=== PATIENT | female | born 1945 | race Hispanic/Latino ===

== ENCOUNTER 2017-12-30 01:37 | Inpatient (IN) | payer BC, MEDICARE ==
[2017-12-30] MEDS ORDERED: Sodium Chloride 0.9% 1,000 ML IV STA (02:31)
[2017-12-30 03:08] LABS: VENOUS BLOOD GAS BASE EXCESS -0.8 mmol/L (0.0-2.0); VENOUS BLOOD GAS PCO2 44 mmHg (40-60); VENOUS BLOOD GAS PO2 21 mm/Hg (30-55); VENOUS BLOOD PH 7.36 (7.32-7.43)
--- NOTE | 2017-12-30 03:11 | ED PDOC ---
HPI:Nausea, Vomiting, Diarrhea Time Seen by Provider: 12/30/17 02:01 Chief Complaint (Nursing): High Blood Sugar Chief Complaint (Provider): nausea, vomiting, diarrhea, high blood sugar History Per: Patient History/Exam Limitations: no limitations Onset/Duration Of Symptoms: Days (1 day ago) Current Symptoms Are (Timing): Still Present Additional Complaint(s): 72 yo female with a history of Pulmonary embolism, currently on Eliquis, hypertension, presents to the ED complaining of nausea, vomiting, and diarrhea, onset of 1 day ago. Patient reports of 1 episode of bloody vomit and 1 episode of dark, brown stool intermixed with blood in the morning, and had another episode of each in the evening. He is also states that he feels lightheaded, dizzy, and clammy. He denies any abdominal pain, but feels hungry. Of note, she claimed that her blood sugar was elevated above 400. PCP: Piotr Lopez V Past Medical History Reviewed: Historical Data, Nursing Documentation, Vital Signs Vital Signs: Last Vital Signs Temp 97.3 F L 12/30/17 01:58 Pulse 97 H 12/30/17 01:58 Resp 18 12/30/17 01:58 BP 96/63 L 12/30/17 01:58 Pulse Ox 96 12/30/17 01:58 - Medical History PMH: HTN, Pulmonary Embolism - Family History Family History: States: Unknown Family Hx - Home Medications Home Medications: Ambulatory Orders Medication Instructions Recorded Apixaban [Eliquis] 5 mg PO BID 12/30/17 Aspirin [Ecotrin] 81 mg PO DAILY 12/30/17 Cholecalciferol [Vitamin D 1000 IU] 1 tab PO DAILY 12/30/17 Febuxostat [Uloric] 80 mg PO DAILY 12/30/17 Furosemide [Lasix] 40 mg PO DAILY 12/30/17 Insulin Detemir [Levemir] 27 units SC BID 12/30/17 Metoprolol Succinate XL [Toprol XL] 100 mg PO BID 12/30/17 diltiaZEM [Cardizem] 240 mg PO DAILY 12/30/17 - Allergies Allergies/Adverse Reactions: Allergies Allergy/AdvReac Type Severity Reaction Status Date / Time No Known Allergies Allergy Verified 12/30/17 01:58 Review of Systems ROS Statement: Except As Marked, All Systems Reviewed And Found Negative Constitutional: Positive for: Other (clammy). Negative for: Fever Cardiovascular: Positive for: Light Headedness Gastrointestinal: Positive for: Nausea, Vomiting, Diarrhea, Hematochezia, Hematemesis Neurological: Positive for: Dizziness Physical Exam - Reviewed Nursing Documentation Reviewed: Yes Vital Signs Reviewed: Yes - Physical Exam Appears: Negative for: Well (pale appearing) Head Exam: Positive for: ATRAUMATIC, NORMAL INSPECTION, NORMOCEPHALIC Skin: Positive for: Pallor Eye Exam: Positive for: EOMI, PERRL, Other (conjunctival pallor) ENT: Positive for: Normal ENT Inspection Neck: Positive for: Normal, Painless ROM Cardiovascular/Chest: Positive for: Regular Rate, Rhythm. Negative for: Murmur Respiratory: Positive for: Normal Breath Sounds. Negative for: Respiratory Distress Gastrointestinal/Abdominal: Positive for: Normal Exam, Soft Rectal: Positive for: Blood Streaked Stool Extremity: Positive for: Normal ROM, Pedal Edema. Negative for: Deformity Neurologic/Psych: Positive for: Alert, Oriented. Negative for: Motor/Sensory Deficits - Laboratory Results Result Diagrams: 12/30/17 05:20 12/30/17 03:11 - ECG O2 Sat by Pulse Oximetry: 96 (RA) Pulse Ox Interpretation: Normal - Critical Care Total Time (In Min): 60 Documented Critical Care: Time excludes all time spent performint seperately billable procedures Medical Decision Making Medical Decision Making: Time: --02:30 Impression: --patient on Eliquis with GI bleed Plan: --Blood type and screen --ECG --Labs --Lipase --Troponin I --Chest One view X-ray --IV fluids --Zofran 4mg IVP --Patoprazole 80mg IVP --Blood Culture --IV Insertion --Urinalysis --Occult Blood, stool Patient will require continuous monitoring and will be given protonics and IV fluids. Patient will also be evaluated for diabetic ketoacidosis. 4AM Patient continues to have bloody bowel movements, will place on PPI drip. 2 units PRBC ordered, patient consented. Will page GI after 2nd CBC trend. Patient stable. 2nd IV placed by nurse, 18G. 5AM BP 120/60. Fluid given at 150ccs/hr as to note hemodilute second CBC. 6AM Will admit patient to ICU given drop in Hgb, age, and continued bleeding. Dr. Hirsch agrees to admission. Dr. Vega aware, agrees with current management and will see patient this AM. Dr. Chavez at bedside evaluating patient for ICU. BP improving, patient appearing in good spirits, no acute distress. Scribe Attestation: Documented by Sherif Vickers acting as a scribe for Arthur Riggs MD. Provider Attestation: All medical record entries made by the Scribe were at my direction and personally dictated by me. I have reviewed the chart and agree that the record accurately reflects my personal performance of the history, physical exam, medical decision making, and the department course for this patient. I have also personally directed, reviewed, and agree with the discharge instructions and disposition. Disposition - Clinical Impression Clinical Impression: GI bleed, Hyperglycemia - Disposition Disposition Time: 04:00 Condition: SERIOUS
[2017-12-30 03:14] LABS: BASO # 0.1 K/uL (0.0-0.2); BASO % 0.5 % (0.0-2.0); EOS % 0.1 % (0.0-4.0); HEMOGLOBIN 9.6 g/dL (12.0-16.0); LYMPH # 1.4 K/uL (1.0-4.3); LYMPH % 9.1 % (20.0-40.0); MEAN CELL VOLUME 79.4 fl (81.0-99.0); MEAN CORPUSCULAR HEMOGLOBIN 26.7 pg (27.0-31.0); MEAN CORPUSCULAR HGB CONC 33.6 g/dL (33.0-37.0); MEAN PLATELET VOLUME 8.9 fl (7.2-11.7); MONO # 0.3 K/uL (0.0-0.8); MONO % 2.1 % (0.0-10.0); NEUT # 13.8 K/uL (1.8-7.0); NEUT % 88.2 % (50.0-75.0); PLATELET COUNT 279 K/uL (130-400); RBC 3.61 Mil/uL (3.80-5.20); RED CELL DISTRIBUTION WIDTH 15.8 % (11.5-14.5); WHITE BLOOD COUNT 15.7 K/uL (4.8-10.8)
[2017-12-30 03:50] LABS: ALB/GLOB RATIO 1.2 (1.0-2.1); ALBUMIN 3.4 g/dL (3.5-5.0); ALT/SGPT 25 U/L (9-52); AST/SGOT 17 U/L (14-36); BLOOD UREA NITROGEN 38 mg/dl (7-17); GFR AFRICAN-AMERICAN > 60; GFR NON-AFRICAN AMERICAN > 60
[2017-12-30] MEDS ORDERED: Pantoprazole 40 MG in Sodium Chloride 0.9% 100 ML IVPB STA (03:50)
[2017-12-30] MEDS ORDERED: Insulin Regular 100 units/ml IV STA (03:50)
[2017-12-30 04:07] LABS: LIPASE 29 U/L (23-300)
[2017-12-30 05:05] LABS: SQUAMOUS EPITHIAL 7 /hpf (0-5); URINE BACTERIA RARE (<OCC); URINE BILIRUBIN NEGATIVE (NEGATIVE); URINE BLOOD MODERATE (NEGATIVE); URINE CLARITY CLOUDY (Clear); URINE COLOR YELLOW (YELLOW); URINE GLUCOSE (UA) >=500 mg/dL (Normal); URINE LEUKOCYTE ESTERASE SMALL Leu/uL (Negative); URINE PROTEIN NEGATIVE (NEGATIVE); URINE UROBILINOGEN 0.2-1.0 mg/dL (0.2-1.0)
[2017-12-30 05:23] LABS: HEMOGLOBIN 8.9 g/dL (12.0-16.0); MEAN CELL VOLUME 79.3 fl (81.0-99.0); MEAN CORPUSCULAR HEMOGLOBIN 26.2 pg (27.0-31.0); RBC 3.4 Mil/uL (3.80-5.20); RED CELL DISTRIBUTION WIDTH 15.8 % (11.5-14.5); WHITE BLOOD COUNT 15.3 K/uL (4.8-10.8)
[2017-12-30 05:42] LABS: LYMPHOCYTE 7 % (20-50); MONOCYTE 3 % (0-10); NEUTROPHIL 90 % (42-75); PLATELET ESTIMATE NORMAL (NORMAL); TOTAL CELLS COUNTED 100
[2017-12-30 06:20] LABS: INR 1.4 (0.9-1.2); PARTIAL THROMBOPLASTIN TIME 26.3 Seconds (25.6-37.1); PROTHROMBIN TIME 15.7 Seconds (9.8-13.1)
--- NOTE | 2017-12-30 06:25 | CP.PCM.CON ---
History of Present Illness - History of Present Illness History of Present Illness: Reason for Consult: GI hemorrhage CC: vomiting blood and blood in stool HPI: 72 F PMH hx PE on Eliquis 2 years ago, IDDMII, HTN, paroxysmal afib (pt uncertain?) presents with a one day history of consistent moderate to severe episodes of black, tarry stools x4 as well as coffee ground emesis x1. This is associated with lightheadedness, dizziness, and clammy feeling, not ameliorated by anything. In ED, 97.3 HR 97-112 BP now 128/56 RR 20 SAT 96% RA - H/H 9.6/ 28.7 repeat 2 hours 8.9/27.0, Protonix drip initiated, 1 L NS administered and on 150cc/hr, 2 units PRBC ordered as of 619, ten minutes until PRBC ready. GI consult with Dr. Vega called in ED. ROS: per HPI all other systems reviewed and negative PMD: Dr. Lopez Piotr Cardiology: Dr. Jones, [facility] PMSH: Stress Test and ECHO scheduled in January, hx PE on Eliquis 2 years ago, IDDMII, HTN, paroxysmal afib (pt uncertain?), retinal detachment surgery FH: CAD SH: former smoker many years ago NKDA Past Patient History - Past Social History Smoking Status: Never Smoked - CARDIAC Hx Hypertension: Yes - PULMONARY Hx Pulmonary Embolism: Yes - HEENT Hx Cataracts: Yes (b/l) Other/Comment: detached retina left eye - ENDOCRINE/METABOLIC Hx Diabetes Mellitus Type 2: Yes - PSYCHIATRIC Hx Substance Use: No - SURGICAL HISTORY Hx Cataract Extraction: Yes (b/l eyes) Hx Tubal Ligation: Yes Other/Comment: Fx to the right orbital - ANESTHESIA Hx Anesthesia: Yes Hx Anesthesia Reactions: No Hx Malignant Hyperthermia: No Meds Allergies/Adverse Reactions: Allergies Allergy/AdvReac Type Severity Reaction Status Date / Time No Known Allergies Allergy Verified 12/30/17 01:58 - Medications Medications: Current Medications Pantoprazole Sodium 40 mg/ (Sodium Chloride) 100 mls @ 20 mls/hr IVPB STAT STA PRN Reason: 8 MG/HR Stop: 12/30/17 08:49 Last Admin: 12/30/17 04:28 Dose: 20 mls/hr Physical Exam - Constitutional Appears: Non-toxic, No Acute Distress - Head Exam Head Exam: ATRAUMATIC, NORMOCEPHALIC - Eye Exam Eye Exam: EOMI, Normal appearance, PERRL Pupil Exam: NORMAL ACCOMODATION - ENT Exam ENT Exam: Mucous Membranes Dry, Normal Oropharynx - Neck Exam Neck exam: Positive for: Full Rom. Negative for: Lymphadenopathy - Respiratory Exam Respiratory Exam: Clear to Auscultation Bilateral, NORMAL BREATHING PATTERN - Cardiovascular Exam Cardiovascular Exam: RRR, +S1, +S2 - GI/Abdominal Exam GI & Abdominal Exam: Normal Bowel Sounds, Soft. absent: Mass, Tenderness - Extremities Exam Extremities exam: Positive for: normal capillary refill, pedal pulses present - Back Exam Back exam: absent: CVA tenderness (L), CVA tenderness (R) - Neurological Exam Neurological exam: Alert, Oriented x3 - Psychiatric Exam Psychiatric exam: Normal Affect, Normal Mood - Skin Skin Exam: Dry, Pallor Results - Vital Signs Recent Vital Signs: Last Vital Signs Temp 97.3 F L 12/30/17 01:58 Pulse 106 H 12/30/17 05:18 Resp 16 12/30/17 05:18 BP 120/60 12/30/17 05:18 Pulse Ox 94 L 12/30/17 05:18 - Labs Result Diagrams: 12/30/17 05:20 12/30/17 03:11 Labs: Laboratory Results - last 24 hr 12/30/17 12/30/17 12/30/17 02:59 03:04 03:11 WBC 15.7 H RBC 3.61 L Hgb 9.6 L Hct 28.7 L MCV 79.4 L MCH 26.7 L MCHC 33.6 RDW 15.8 H Plt Count 279 MPV 8.9 Neut % (Auto) 88.2 H Lymph % (Auto) 9.1 L [place] % (Auto) 2.1 Eos % (Auto) 0.1 Baso % (Auto) 0.5 Neut # (Auto) 13.8 H Lymph # (Auto) 1.4 [place] # (Auto) 0.3 Eos # (Auto) 0.0 Baso # (Auto) 0.1 Neutrophils % (Manual) 90 H Lymphocytes % (Manual) 7 L Monocytes % (Manual) 3 Platelet Estimate Normal RBC Morphology Normal PT INR APTT pO2 21 L VBG pH 7.36 VBG pCO2 44 VBG HCO3 22.5 VBG Total CO2 26.3 VBG O2 Sat (Calc) 33.8 L VBG Base Excess -0.8 L VBG Potassium 4.9 Sodium 135.0 Chloride 100.0 Glucose 461 H* Lactate 2.9 H FiO2 21.0 Crit Value Called To Ayaz davis Crit Value Called By 292 Crit Value Read Back Y Blood Gas Notified Time 308 Potassium Carbon Dioxide Anion Gap BUN Creatinine Est GFR ( Amer) Est GFR (Non-Af Amer) POC Glucose (mg/dL) Random Glucose Calcium Total Bilirubin AST ALT Alkaline Phosphatase Troponin I Total Protein Albumin Globulin Albumin/Globulin Ratio Lipase Venous Blood Potassium 4.9 Urine Color Urine Clarity Urine pH Ur Specific [place] Urine Protein Urine Glucose (UA) Urine Ketones Urine Blood Urine Nitrate Urine Bilirubin Urine Urobilinogen Ur Leukocyte Esterase Urine RBC (Auto) Urine Microscopic WBC Ur Squamous Epith Cells Urine Bacteria Stool Occult Blood Blood Type A POSITIVE Antibody Screen Negative BBK History Checked No verified bt 12/30/17 12/30/17 12/30/17 03:11 03:11 04:42 WBC RBC Hgb Hct MCV MCH MCHC RDW Plt Count MPV Neut % (Auto) Lymph % (Auto) [place] % (Auto) Eos % (Auto) Baso % (Auto) Neut # (Auto) Lymph # (Auto) [place] # (Auto) Eos # (Auto) Baso # (Auto) Neutrophils % (Manual) Lymphocytes % (Manual) Monocytes % (Manual) Platelet Estimate RBC Morphology PT INR APTT pO2 VBG pH VBG pCO2 VBG HCO3 VBG Total CO2 VBG O2 Sat (Calc) VBG Base Excess VBG Potassium Sodium 136 Chloride 99 Glucose Lactate FiO2 Crit Value Called To Crit Value Called By Crit Value Read Back Blood Gas Notified Time Potassium 4.9 Carbon Dioxide 26 Anion Gap 16 BUN 38 H Creatinine 0.7 Est GFR ( Amer) > 60 Est GFR (Non-Af Amer) > 60 POC Glucose (mg/dL) Random Glucose 464 H* Calcium 9.0 Total Bilirubin 0.3 AST 17 ALT 25 Alkaline Phosphatase 82 Troponin I < 0.0120 Total Protein 6.3 Albumin 3.4 L Globulin 2.9 Albumin/Globulin Ratio 1.2 Lipase 29 Venous Blood Potassium Urine Color Yellow Urine Clarity Cloudy Urine pH 6.0 Ur Specific [place] 1.035 H Urine Protein Negative Urine Glucose (UA) >=500 Urine Ketones 20 Urine Blood Moderate Urine Nitrate Negative Urine Bilirubin Negative Urine Urobilinogen 0.2-1.0 Ur Leukocyte Esterase Small Urine RBC (Auto) 11 H Urine Microscopic WBC 23 H Ur Squamous Epith Cells 7 H Urine Bacteria Rare Stool Occult Blood Positive H Blood Type Antibody Screen BBK History Checked 12/30/17 12/30/17 12/30/17 05:14 05:20 05:20 WBC 15.3 H RBC 3.40 L Hgb 8.9 L Hct 27.0 L MCV 79.3 L MCH 26.2 L MCHC 33.0 RDW 15.8 H Plt Count 269 MPV Neut % (Auto) Lymph % (Auto) [place] % (Auto) Eos % (Auto) Baso % (Auto) Neut # (Auto) Lymph # (Auto) [place] # (Auto) Eos # (Auto) Baso # (Auto) Neutrophils % (Manual) Lymphocytes % (Manual) Monocytes % (Manual) Platelet Estimate RBC Morphology PT 15.7 H INR 1.4 H APTT 26.3 pO2 VBG pH VBG pCO2 VBG HCO3 VBG Total CO2 VBG O2 Sat (Calc) VBG Base Excess VBG Potassium Sodium Chloride Glucose Lactate FiO2 Crit Value Called To Crit Value Called By Crit Value Read Back Blood Gas Notified Time Potassium Carbon Dioxide Anion Gap BUN Creatinine Est GFR ( Amer) Est GFR (Non-Af Amer) POC Glucose (mg/dL) 388 H Random Glucose Calcium Total Bilirubin AST ALT Alkaline Phosphatase Troponin I Total Protein Albumin Globulin Albumin/Globulin Ratio Lipase Venous Blood Potassium Urine Color Urine Clarity Urine pH Ur Specific [place] Urine Protein Urine Glucose (UA) Urine Ketones Urine Blood Urine Nitrate Urine Bilirubin Urine Urobilinogen Ur Leukocyte Esterase Urine RBC (Auto) Urine Microscopic WBC Ur Squamous Epith Cells Urine Bacteria Stool Occult Blood Blood Type Antibody Screen BBK History Checked Assessment & Plan - Assessment and Plan (Free Text) Plan: 72 F PMH hx PE on Eliquis 2 years ago, IDDMII, HTN, paroxysmal afib (pt uncertain?) presents with a one day history of consistent moderate to severe episodes of black, tarry stools x4 as well as coffee ground emesis x1. This is associated with lightheadedness, dizziness, and clammy feeling, not ameliorated by anything. In ED, 97.3 HR 97-112 BP now 128/56 RR 20 SAT 96% RA - H/H 9.6/ 28.7 repeat 2 hours 8.9/27.0, Protonix drip initiated, 1 L NS administered and on 150cc/hr, 2 units PRBC ordered as of 0620, ten minutes until PRBC ready. GI consult with Dr. Vega called in ED. Acute GIB Acute blood loss anemia IDDMII HTN Parox AFib? - continue PPI, NS @ 150 cc/hr, 2 units PRBC to be transfused this AM, repeat CBC q4 hours - monitor for HD stability, currently mild tachycardia - GI Consult this AM for likely EGD - continue IV Lopressor for BB and Hydralazine for BP control while NPO - accuchecks and ISS for IDDM
[2017-12-30] MEDS: Sodium Chloride 0.9% 1,000 ML IV SCH ×3 (07:00→19:49)
[2017-12-30] MEDS: Insulin Lispro (humaLOG) 100 Units/ml Inj SC SCH ×4 (08:08→22:10)
--- NOTE | 2017-12-30 08:54 | CP.PCM.CON ---
<Moises Munson - Last Filed: 12/30/17 08:56> History of Present Illness - History of Present Illness History of Present Illness: PGY5 GI Fellow Consult Note Patient is a 72yo female with PMHx significant for a PE 2 years ago, on Eliquis since, question of paroxysmal atrial fibrillation, DM2, HTN who presented to the ED with complaint of dizziness, fatigue, rectal bleeding and hematemesis. For several weeks the patient has complained of dyspnea on exertion as well as dizziness upon standing from a sitting position. Yesterday, the patient awoke with generalized malaise and had an episode of loose brown stool with specks of blood. She soon became nauseated and had an episode of coffee ground emesis with some fresh blood noted as well. For most of the day she felt better but around 4PM, after eating lunch, she again became nauseated and vomited coffee ground emesis and had an episode of hematochezia. Later in the evening she had a third episode of nausea/vomiting, this time with fresh, bright red blood prompting her to come to the ED for further evaluation. The patent denies any history of GI bleeding. She admits to using Advil for several days a week ago for back pain but otherwise does not regularly use NSAIDs. She has no prior endoscopic evaluations. Denies any weight loss, fever, chills, constipation, h/ o diverticulosis or rectal bleeding. PMHx: See HPI PSHx: Left retinal detachment, B/L cataracts, Right orbital fracture repair FHx: Mother - Lived to 98yo, Alzheimer's, Colon cancer at ~80yo Father - CVA Social: Former tobacco user (>30 years ago), denies EtOH or illicit drug use Endo: No prior evaluations 12 system ROS performed and negative except where stated. Past Patient History - Past Social History Smoking Status: Never Smoked - CARDIAC Hx Hypertension: Yes - PULMONARY Hx Pulmonary Embolism: Yes - HEENT Hx Cataracts: Yes (b/l) Other/Comment: detached retina left eye - ENDOCRINE/METABOLIC Hx Diabetes Mellitus Type 2: Yes - PSYCHIATRIC Hx Substance Use: No - SURGICAL HISTORY Hx Cataract Extraction: Yes (b/l eyes) Hx Tubal Ligation: Yes Other/Comment: Fx to the right orbital - ANESTHESIA Hx Anesthesia: Yes Hx Anesthesia Reactions: No Hx Malignant Hyperthermia: No Meds Allergies/Adverse Reactions: Allergies Allergy/AdvReac Type Severity Reaction Status Date / Time No Known Allergies Allergy Verified 12/30/17 01:58 - Medications Medications: Current Medications Hydralazine HCl (Apresoline) 10 mg IV Q6 PRN PRN Reason: SBP >150 Pantoprazole Sodium 40 mg/ (Sodium Chloride) 100 mls @ 20 mls/hr IVPB STAT STA PRN Reason: 8 MG/HR Stop: 12/30/17 08:49 Last Admin: 12/30/17 04:28 Dose: 20 mls/hr Sodium Chloride (Sodium Chloride 0.9%) 1,000 mls @ 150 mls/hr IV .Q6H40M TERRANCE Stop: 12/31/17 06:30 Last Admin: 12/30/17 07:00 Dose: 150 mls/hr Insulin Detemir (Levemir) 27 units SC BID TERRANCE Insulin Human Lispro (Humalog) 0 units SC ACHS TERRANCE PRN Reason: Protocol Last Admin: 12/30/17 08:08 Dose: 4 units Metoprolol Tartrate (Lopressor) 5 mg IVP Q6 TERRANCE Physical Exam - Constitutional Appears: Non-toxic, No Acute Distress, Other (obese) - Eye Exam Eye Exam: EOMI, PERRL - ENT Exam ENT Exam: Mucous Membranes Moist - Respiratory Exam Respiratory Exam: Clear to Auscultation Bilateral. absent: Rales, Rhonchi, Wheezes - Cardiovascular Exam Cardiovascular Exam: Tachycardia, REGULAR RHYTHM, +S1, +S2 - GI/Abdominal Exam GI & Abdominal Exam: Normal Bowel Sounds, Soft. absent: Distended, Firm, Guarding, Hernia, Organomegaly, Rigid, Tenderness - Rectal Exam Rectal Exam: Black Stool, Bloody Stool (minimal, though fresh blood specks noted ), Hemorrhoids (internal) Additional comments: Accompanied by ER Nurse Yvonne - Extremities Exam Extremities exam: Positive for: normal inspection. Negative for: pedal edema - Neurological Exam Neurological exam: Alert, Oriented x3 - Psychiatric Exam Psychiatric exam: Normal Affect, Normal Mood - Skin Skin Exam: Dry, Warm Additional comments: small erythematous patch noted near left breast Results - Vital Signs Recent Vital Signs: Last Vital Signs Temp 98.0 F 12/30/17 06:32 Pulse 103 H 12/30/17 06:32 Resp 20 12/30/17 06:32 BP 128/56 L 12/30/17 06:32 Pulse Ox 96 12/30/17 06:36 - Labs Result Diagrams: 12/30/17 05:20 12/30/17 03:11 Labs: Laboratory Results - last 24 hr 12/30/17 12/30/17 12/30/17 02:59 03:04 03:11 WBC 15.7 H RBC 3.61 L Hgb 9.6 L Hct 28.7 L MCV 79.4 L MCH 26.7 L MCHC 33.6 RDW 15.8 H Plt Count 279 MPV 8.9 Neut % (Auto) 88.2 H Lymph % (Auto) 9.1 L [place] % (Auto) 2.1 Eos % (Auto) 0.1 Baso % (Auto) 0.5 Neut # (Auto) 13.8 H Lymph # (Auto) 1.4 [place] # (Auto) 0.3 Eos # (Auto) 0.0 Baso # (Auto) 0.1 Neutrophils % (Manual) 90 H Lymphocytes % (Manual) 7 L Monocytes % (Manual) 3 Platelet Estimate Normal RBC Morphology Normal PT INR APTT pO2 21 L VBG pH 7.36 VBG pCO2 44 VBG HCO3 22.5 VBG Total CO2 26.3 VBG O2 Sat (Calc) 33.8 L VBG Base Excess -0.8 L VBG Potassium 4.9 Sodium 135.0 Chloride 100.0 Glucose 461 H* Lactate 2.9 H FiO2 21.0 Crit Value Called To Ayaz davis Crit Value Called By 292 Crit Value Read Back Y Blood Gas Notified Time 308 Potassium Carbon Dioxide Anion Gap BUN Creatinine Est GFR ( Amer) Est GFR (Non-Af Amer) POC Glucose (mg/dL) Random Glucose Calcium Total Bilirubin AST ALT Alkaline Phosphatase Troponin I Total Protein Albumin Globulin Albumin/Globulin Ratio Lipase Venous Blood Potassium 4.9 Urine Color Urine Clarity Urine pH Ur Specific [place] Urine Protein Urine Glucose (UA) Urine Ketones Urine Blood Urine Nitrate Urine Bilirubin Urine Urobilinogen Ur Leukocyte Esterase Urine RBC (Auto) Urine Microscopic WBC Ur Squamous Epith Cells Urine Bacteria Stool Occult Blood Blood Type A POSITIVE Blood Type Confirm Antibody Screen Negative Crossmatch See Detail BBK History Checked No verified bt 12/30/17 12/30/17 12/30/17 03:11 03:11 04:42 WBC RBC Hgb Hct MCV MCH MCHC RDW Plt Count MPV Neut % (Auto) Lymph % (Auto) [place] % (Auto) Eos % (Auto) Baso % (Auto) Neut # (Auto) Lymph # (Auto) [place] # (Auto) Eos # (Auto) Baso # (Auto) Neutrophils % (Manual) Lymphocytes % (Manual) Monocytes % (Manual) Platelet Estimate RBC Morphology PT INR APTT pO2 VBG pH VBG pCO2 VBG HCO3 VBG Total CO2 VBG O2 Sat (Calc) VBG Base Excess VBG Potassium Sodium 136 Chloride 99 Glucose Lactate FiO2 Crit Value Called To Crit Value Called By Crit Value Read Back Blood Gas Notified Time Potassium 4.9 Carbon Dioxide 26 Anion Gap 16 BUN 38 H Creatinine 0.7 Est GFR ( Amer) > 60 Est GFR (Non-Af Amer) > 60 POC Glucose (mg/dL) Random Glucose 464 H* Calcium 9.0 Total Bilirubin 0.3 AST 17 ALT 25 Alkaline Phosphatase 82 Troponin I < 0.0120 Total Protein 6.3 Albumin 3.4 L Globulin 2.9 Albumin/Globulin Ratio 1.2 Lipase 29 Venous Blood Potassium Urine Color Yellow Urine Clarity Cloudy Urine pH 6.0 Ur Specific [place] 1.035 H Urine Protein Negative Urine Glucose (UA) >=500 Urine Ketones 20 Urine Blood Moderate Urine Nitrate Negative Urine Bilirubin Negative Urine Urobilinogen 0.2-1.0 Ur Leukocyte Esterase Small Urine RBC (Auto) 11 H Urine Microscopic WBC 23 H Ur Squamous Epith Cells 7 H Urine Bacteria Rare Stool Occult Blood Positive H Blood Type Blood Type Confirm Antibody Screen Crossmatch BBK History Checked 12/30/17 12/30/17 12/30/17 05:12 05:14 05:20 WBC 15.3 H RBC 3.40 L Hgb 8.9 L Hct 27.0 L MCV 79.3 L MCH 26.2 L MCHC 33.0 RDW 15.8 H Plt Count 269 MPV Neut % (Auto) Lymph % (Auto) [place] % (Auto) Eos % (Auto) Baso % (Auto) Neut # (Auto) Lymph # (Auto) [place] # (Auto) Eos # (Auto) Baso # (Auto) Neutrophils % (Manual) Lymphocytes % (Manual) Monocytes % (Manual) Platelet Estimate RBC Morphology PT INR APTT pO2 VBG pH VBG pCO2 VBG HCO3 VBG Total CO2 VBG O2 Sat (Calc) VBG Base Excess VBG Potassium Sodium Chloride Glucose Lactate FiO2 Crit Value Called To Crit Value Called By Crit Value Read Back Blood Gas Notified Time Potassium Carbon Dioxide Anion Gap BUN Creatinine Est GFR ( Amer) Est GFR (Non-Af Amer) POC Glucose (mg/dL) 388 H Random Glucose Calcium Total Bilirubin AST ALT Alkaline Phosphatase Troponin I Total Protein Albumin Globulin Albumin/Globulin Ratio Lipase Venous Blood Potassium Urine Color Urine Clarity Urine pH Ur Specific [place] Urine Protein Urine Glucose (UA) Urine Ketones Urine Blood Urine Nitrate Urine Bilirubin Urine Urobilinogen Ur Leukocyte Esterase Urine RBC (Auto) Urine Microscopic WBC Ur Squamous Epith Cells Urine Bacteria Stool Occult Blood Blood Type Blood Type Confirm A POSITIVE Antibody Screen Crossmatch BBK History Checked 12/30/17 12/30/17 05:20 07:20 WBC RBC Hgb Hct MCV MCH MCHC RDW Plt Count MPV Neut % (Auto) Lymph % (Auto) [place] % (Auto) Eos % (Auto) Baso % (Auto) Neut # (Auto) Lymph # (Auto) [place] # (Auto) Eos # (Auto) Baso # (Auto) Neutrophils % (Manual) Lymphocytes % (Manual) Monocytes % (Manual) Platelet Estimate RBC Morphology PT 15.7 H INR 1.4 H APTT 26.3 pO2 VBG pH VBG pCO2 VBG HCO3 VBG Total CO2 VBG O2 Sat (Calc) VBG Base Excess VBG Potassium Sodium Chloride Glucose Lactate FiO2 Crit Value Called To Crit Value Called By Crit Value Read Back Blood Gas Notified Time Potassium Carbon Dioxide Anion Gap BUN Creatinine Est GFR ( Amer) Est GFR (Non-Af Amer) POC Glucose (mg/dL) 346 H Random Glucose Calcium Total Bilirubin AST ALT Alkaline Phosphatase Troponin I Total Protein Albumin Globulin Albumin/Globulin Ratio Lipase Venous Blood Potassium Urine Color Urine Clarity Urine pH Ur Specific [place] Urine Protein Urine Glucose (UA) Urine Ketones Urine Blood Urine Nitrate Urine Bilirubin Urine Urobilinogen Ur Leukocyte Esterase Urine RBC (Auto) Urine Microscopic WBC Ur Squamous Epith Cells Urine Bacteria Stool Occult Blood Blood Type Blood Type Confirm Antibody Screen Crossmatch BBK History Checked Assessment & Plan - Assessment and Plan (Free Text) Assessment: Patient is a 72yo female with PMHx significant for a PE 2 years ago, on Eliquis since, question of paroxysmal atrial fibrillation, DM2, HTN who presented to the ED with complaint of dizziness, fatigue, rectal bleeding and hematemesis -Symptomatic acute blood loss anemia -H/O PE, ? Paroxsymal AFib on Eliquis -Obesity -DM2 -HTN Plan: -Continue ongoing resuscitation efforts with IVF, PRBCs -On IV PPI gtt - s/p 80mg IV bolus - now on Protonix @ 8mg/hr -CBC Q8H -Hold Eliquis -Pt to be monitored in ICU setting -Plan for EGD tomorrow morning at 8am pending any changes in clinical status -Patient can have liquid diet today, NPO past MN Case discussed with Dr Vega - Date & Time Date: 12/30/17 Time: 07:15 <Ismael Vega - Last Filed: 12/31/17 00:01> Meds - Medications Medications: Current Medications Hydralazine HCl (Apresoline) 10 mg IV Q6 PRN PRN Reason: SBP >150 Sodium Chloride (Sodium Chloride 0.9%) 1,000 mls @ 150 mls/hr IV .Q6H40M TERRANCE Stop: 12/31/17 06:30 Last Admin: 12/30/17 19:49 Dose: 150 mls/hr Pantoprazole Sodium 40 mg/ (Sodium Chloride) 100 mls @ 20 mls/hr IVPB Q5H TERRANCE PRN Reason: 8 MG/HR Last Admin: 12/30/17 23:36 Dose: 20 mls/hr Insulin Detemir (Levemir) 27 units SC BID TERRANCE Last Admin: 12/30/17 16:48 Dose: 27 unit Insulin Human Lispro (Humalog) 0 units SC ACHS TERRANCE PRN Reason: Protocol Last Admin: 12/30/17 22:10 Dose: Not Given Results - Vital Signs Recent Vital Signs: Last Vital Signs Temp 98.2 F 12/30/17 23:37 Pulse 88 12/30/17 23:37 Resp 13 12/30/17 23:37 BP 114/66 12/30/17 23:37 Pulse Ox 94 L 12/30/17 23:37 - Labs Result Diagrams: 12/30/17 12:15 12/30/17 16:10 Labs: Laboratory Results - last 24 hr 12/30/17 12/30/17 12/30/17 02:59 03:04 03:11 WBC 15.7 H RBC 3.61 L Hgb 9.6 L Hct 28.7 L MCV 79.4 L MCH 26.7 L MCHC 33.6 RDW 15.8 H Plt Count 279 MPV 8.9 Neut % (Auto) 88.2 H Lymph % (Auto) 9.1 L [place] % (Auto) 2.1 Eos % (Auto) 0.1 Baso % (Auto) 0.5 Neut # (Auto) 13.8 H Lymph # (Auto) 1.4 [place] # (Auto) 0.3 Eos # (Auto) 0.0 Baso # (Auto) 0.1 Neutrophils % (Manual) 90 H Lymphocytes % (Manual) 7 L Monocytes % (Manual) 3 Platelet Estimate Normal RBC Morphology Normal PT INR APTT pO2 21 L VBG pH 7.36 VBG pCO2 44 VBG HCO3 22.5 VBG Total CO2 26.3 VBG O2 Sat (Calc) 33.8 L VBG Base Excess -0.8 L VBG Potassium 4.9 Sodium 135.0 Chloride 100.0 Glucose 461 H* Lactate 2.9 H FiO2 21.0 Crit Value Called To Ayaz davis Crit Value Called By 292 Crit Value Read Back Y Blood Gas Notified Time 308 Potassium Carbon Dioxide Anion Gap BUN Creatinine Est GFR ( Amer) Est GFR (Non-Af Amer) POC Glucose (mg/dL) Random Glucose Calcium Total Bilirubin AST ALT Alkaline Phosphatase Troponin I Total Protein Albumin Globulin Albumin/Globulin Ratio Lipase Venous Blood Potassium 4.9 Urine Color Urine Clarity Urine pH Ur Specific [place] Urine Protein Urine Glucose (UA) Urine Ketones Urine Blood Urine Nitrate Urine Bilirubin Urine Urobilinogen Ur Leukocyte Esterase Urine RBC (Auto) Urine Microscopic WBC Ur Squamous Epith Cells Urine Bacteria Stool Occult Blood Blood Type A POSITIVE Blood Type Confirm Antibody Screen Negative Crossmatch See Detail BBK History Checked No verified bt 12/30/17 12/30/17 12/30/17 03:11 03:11 04:42 WBC RBC Hgb Hct MCV MCH MCHC RDW Plt Count MPV Neut % (Auto) Lymph % (Auto) [place] % (Auto) Eos % (Auto) Baso % (Auto) Neut # (Auto) Lymph # (Auto) [place] # (Auto) Eos # (Auto) Baso # (Auto) Neutrophils % (Manual) Lymphocytes % (Manual) Monocytes % (Manual) Platelet Estimate RBC Morphology PT INR APTT pO2 VBG pH VBG pCO2 VBG HCO3 VBG Total CO2 VBG O2 Sat (Calc) VBG Base Excess VBG Potassium Sodium 136 Chloride 99 Glucose Lactate FiO2 Crit Value Called To Crit Value Called By Crit Value Read Back Blood Gas Notified Time Potassium 4.9 Carbon Dioxide 26 Anion Gap 16 BUN 38 H Creatinine 0.7 Est GFR ( Amer) > 60 Est GFR (Non-Af Amer) > 60 POC Glucose (mg/dL) Random Glucose 464 H* Calcium 9.0 Total Bilirubin 0.3 AST 17 ALT 25 Alkaline Phosphatase 82 Troponin I < 0.0120 Total Protein 6.3 Albumin 3.4 L Globulin 2.9 Albumin/Globulin Ratio 1.2 Lipase 29 Venous Blood Potassium Urine Color Yellow Urine Clarity Cloudy Urine pH 6.0 Ur Specific [place] 1.035 H Urine Protein Negative Urine Glucose (UA) >=500 Urine Ketones 20 Urine Blood Moderate Urine Nitrate Negative Urine Bilirubin Negative Urine Urobilinogen 0.2-1.0 Ur Leukocyte Esterase Small Urine RBC (Auto) 11 H Urine Microscopic WBC 23 H Ur Squamous Epith Cells 7 H Urine Bacteria Rare Stool Occult Blood Positive H Blood Type Blood Type Confirm Antibody Screen Crossmatch BBK History Checked 12/30/17 12/30/17 12/30/17 05:12 05:14 05:20 WBC 15.3 H RBC 3.40 L Hgb 8.9 L Hct 27.0 L MCV 79.3 L MCH 26.2 L MCHC 33.0 RDW 15.8 H Plt Count 269 MPV Neut % (Auto) Lymph % (Auto) [place] % (Auto) Eos % (Auto) Baso % (Auto) Neut # (Auto) Lymph # (Auto) [place] # (Auto) Eos # (Auto) Baso # (Auto) Neutrophils % (Manual) Lymphocytes % (Manual) Monocytes % (Manual) Platelet Estimate RBC Morphology PT INR APTT pO2 VBG pH VBG pCO2 VBG HCO3 VBG Total CO2 VBG O2 Sat (Calc) VBG Base Excess VBG Potassium Sodium Chloride Glucose Lactate FiO2 Crit Value Called To Crit Value Called By Crit Value Read Back Blood Gas Notified Time Potassium Carbon Dioxide Anion Gap BUN Creatinine Est GFR ( Amer) Est GFR (Non-Af Amer) POC Glucose (mg/dL) 388 H Random Glucose Calcium Total Bilirubin AST ALT Alkaline Phosphatase Troponin I Total Protein Albumin Globulin Albumin/Globulin Ratio Lipase Venous Blood Potassium Urine Color Urine Clarity Urine pH Ur Specific [place] Urine Protein Urine Glucose (UA) Urine Ketones Urine Blood Urine Nitrate Urine Bilirubin Urine Urobilinogen Ur Leukocyte Esterase Urine RBC (Auto) Urine Microscopic WBC Ur Squamous Epith Cells Urine Bacteria Stool Occult Blood Blood Type Blood Type Confirm A POSITIVE Antibody Screen Crossmatch BBK History Checked 12/30/17 12/30/17 12/30/17 05:20 07:20 11:51 WBC RBC Hgb Hct MCV MCH MCHC RDW Plt Count MPV Neut % (Auto) Lymph % (Auto) [place] % (Auto) Eos % (Auto) Baso % (Auto) Neut # (Auto) Lymph # (Auto) [place] # (Auto) Eos # (Auto) Baso # (Auto) Neutrophils % (Manual) Lymphocytes % (Manual) Monocytes % (Manual) Platelet Estimate RBC Morphology PT 15.7 H INR 1.4 H APTT 26.3 pO2 VBG pH VBG pCO2 VBG HCO3 VBG Total CO2 VBG O2 Sat (Calc) VBG Base Excess VBG Potassium Sodium Chloride Glucose Lactate FiO2 Crit Value Called To Crit Value Called By Crit Value Read Back Blood Gas Notified Time Potassium Carbon Dioxide Anion Gap BUN Creatinine Est GFR ( Amer) Est GFR (Non-Af Amer) POC Glucose (mg/dL) 346 H 272 H Random Glucose Calcium Total Bilirubin AST ALT Alkaline Phosphatase Troponin I Total Protein Albumin Globulin Albumin/Globulin Ratio Lipase Venous Blood Potassium Urine Color Urine Clarity Urine pH Ur Specific [place] Urine Protein Urine Glucose (UA) Urine Ketones Urine Blood Urine Nitrate Urine Bilirubin Urine Urobilinogen Ur Leukocyte Esterase Urine RBC (Auto) Urine Microscopic WBC Ur Squamous Epith Cells Urine Bacteria Stool Occult Blood Blood Type Blood Type Confirm Antibody Screen Crossmatch BBK History Checked 12/30/17 12/30/17 12/30/17 12:15 16:10 16:53 WBC 13.9 H RBC 3.34 L Hgb 8.8 L Hct 27.3 L MCV 81.7 D MCH 26.4 L MCHC 32.3 L RDW 15.9 H Plt Count 236 MPV Neut % (Auto) Lymph % (Auto) [place] % (Auto) Eos % (Auto) Baso % (Auto) Neut # (Auto) Lymph # (Auto) [place] # (Auto) Eos # (Auto) Baso # (Auto) Neutrophils % (Manual) Lymphocytes % (Manual) Monocytes % (Manual) Platelet Estimate RBC Morphology PT INR APTT pO2 VBG pH VBG pCO2 VBG HCO3 VBG Total CO2 VBG O2 Sat (Calc) VBG Base Excess VBG Potassium Sodium 138 Chloride 103 Glucose Lactate FiO2 Crit Value Called To Crit Value Called By Crit Value Read Back Blood Gas Notified Time Potassium 4.3 Carbon Dioxide 22 Anion Gap 17 BUN 26 H Creatinine 0.6 L Est GFR ( Amer) > 60 Est GFR (Non-Af Amer) > 60 POC Glucose (mg/dL) 256 H Random Glucose 257 H Calcium 8.6 Total Bilirubin AST ALT Alkaline Phosphatase Troponin I Total Protein Albumin Globulin Albumin/Globulin Ratio Lipase Venous Blood Potassium Urine Color Urine Clarity Urine pH Ur Specific [place] Urine Protein Urine Glucose (UA) Urine Ketones Urine Blood Urine Nitrate Urine Bilirubin Urine Urobilinogen Ur Leukocyte Esterase Urine RBC (Auto) Urine Microscopic WBC Ur Squamous Epith Cells Urine Bacteria Stool Occult Blood Blood Type Blood Type Confirm Antibody Screen Crossmatch BBK History Checked 12/30/17 21:39 WBC RBC Hgb Hct MCV MCH MCHC RDW Plt Count MPV Neut % (Auto) Lymph % (Auto) [place] % (Auto) Eos % (Auto) Baso % (Auto) Neut # (Auto) Lymph # (Auto) [place] # (Auto) Eos # (Auto) Baso # (Auto) Neutrophils % (Manual) Lymphocytes % (Manual) Monocytes % (Manual) Platelet Estimate RBC Morphology PT INR APTT pO2 VBG pH VBG pCO2 VBG HCO3 VBG Total CO2 VBG O2 Sat (Calc) VBG Base Excess VBG Potassium Sodium Chloride Glucose Lactate FiO2 Crit Value Called To Crit Value Called By Crit Value Read Back Blood Gas Notified Time Potassium Carbon Dioxide Anion Gap BUN Creatinine Est GFR ( Amer) Est GFR (Non-Af Amer) POC Glucose (mg/dL) 220 H Random Glucose Calcium Total Bilirubin AST ALT Alkaline Phosphatase Troponin I Total Protein Albumin Globulin Albumin/Globulin Ratio Lipase Venous Blood Potassium Urine Color Urine Clarity Urine pH Ur Specific [place] Urine Protein Urine Glucose (UA) Urine Ketones Urine Blood Urine Nitrate Urine Bilirubin Urine Urobilinogen Ur Leukocyte Esterase Urine RBC (Auto) Urine Microscopic WBC Ur Squamous Epith Cells Urine Bacteria Stool Occult Blood Blood Type Blood Type Confirm Antibody Screen Crossmatch BBK History Checked Assessment & Plan - Assessment and Plan (Free Text) Plan: Patient states about 10 days ago had taken 10 naprosyn tablets for back pain. Patient seen and examined by me. Stable clinically. Hgb has not risen much despite transfusion due to volume repletion.
--- NOTE | 2017-12-30 08:57 | RAD ---
PROCEDURE: CHEST RADIOGRAPH, 1 VIEW HISTORY: GIB COMPARISON: None available. FINDINGS: LUNGS: No infiltrate is identified bilaterally. PLEURA: No pneumothorax or pleural fluid seen. CARDIOVASCULAR: Cardiomegaly is likely. Frontal technique limits evaluation. No pulmonary vascular derangement nevertheless. OSSEOUS STRUCTURES: No significant abnormalities. VISUALIZED UPPER ABDOMEN: Normal. OTHER FINDINGS: None. IMPRESSION: No acute infiltrate, pleural effusion, pneumothorax or pulmonary vascular derangement. Mild cardiomegaly is noted.
[2017-12-30] MEDS ORDERED: INSULIN DETEMIR 27 UNIT SC SCH (09:00)
--- NOTE | 2017-12-30 10:28 | HP ---
HISTORY OF PRESENT ILLNESS: Ms. Ybarra is a 72-year-old female who was admitted via the Emergency Room because of vomiting of a blood and black tarry stools that finally turned to bright red blood on the day of admission. She also vomited coffee-ground emesis x1 on the night of admission. She was seen in the Emergency Room and because of anemia was advised admission for workup and therapy into Intensive Care Unit. She has a history of pulmonary embolism from 2 years ago and was placed on Eliquis. She also has paroxysmal atrial fibrillation and has been maintained on Eliquis for the past several years. PAST MEDICAL HISTORY: Other past medical history is remarkable for diabetes mellitus and hypertension. FAMILY HISTORY: Noncontributory. SOCIAL HISTORY: Socially, she does not drink or smoke and lives at home with her . REVIEW OF SYSTEMS: Essentially unremarkable. PHYSICAL EXAMINATION: GENERAL: The patient is alert and oriented, appears to be comfortable at present. VITAL SIGNS: Blood pressure of 128/56 with a pulse of 100, respiratory rate is 18, and she is febrile. O2 saturation is 95% on room air. SKIN: Shows turgor. HEENT: Pupils are equal and reactive to light and accommodation. JVP flat. Mouth shows fair hygiene. LUNGS: Clear. HEART: Regular. No murmurs or gallops. BREASTS: Normal. ABDOMEN: Soft, nontender, and no organomegaly. EXTREMITIES: Shows no edema or cyanosis. NEUROLOGIC: Central nervous system exam is grossly intact. LABORATORY DATA: Remarkable for WBC of 15.3, hemoglobin of 8.9 and platelet count of 269,000. Sodium of 136, potassium of 4.9, BUN of 38, creatinine of 0.7, and serum glucose of 468. DIAGNOSTIC DATA: EKG; regular sinus rhythm, official report pending. Chest x-ray Official report pending, but shows no acute cardiopulmonary pathology as read by me. IMPRESSION: Acute gastrointestinal bleeding, questionable etiology one has to rule out upper gastrointestinal bleed due to liquids and history of paroxysmal atrial fibrillation, history of pulmonary embolism, history of hypertension, diabetes mellitus with hyperglycemia type 2. PLAN: The plan is hold all anticoagulation, transfusion of packed red blood cells, and monitor H and H. Gastroenterology evaluation for possible endoscopy. Case discussed with the patient and and further therapy will depend on findings. Justin Hirsch MD [facility] # [id number]
[2017-12-30] MEDS: Pantoprazole 40 MG in Sodium Chloride 0.9% 100 ML IVPB SCH ×4 (10:45→23:36)
--- NOTE | 2017-12-30 11:30 | CARD ---
APPROVED REPORT EKG Measurement Heart [id number] <Conclusion> Normal sinus rhythm Nonspecific ST abnormality Abnormal ECG
[2017-12-30 12:22] LABS: HEMOGLOBIN 8.8 g/dL (12.0-16.0); MEAN CELL VOLUME 81.7 fl (81.0-99.0); MEAN CORPUSCULAR HEMOGLOBIN 26.4 pg (27.0-31.0); MEAN CORPUSCULAR HGB CONC 32.3 g/dL (33.0-37.0); RBC 3.34 Mil/uL (3.80-5.20); RED CELL DISTRIBUTION WIDTH 15.9 % (11.5-14.5); WHITE BLOOD COUNT 13.9 K/uL (4.8-10.8)
[2017-12-30] MEDS: Metoprolol 1 mg/ml Inj IVP SCH ×3 (13:59→22:34)
[2017-12-30 16:44] LABS: BLOOD UREA NITROGEN 26 mg/dl (7-17); CALCIUM 8.6 mg/dL (8.4-10.2); GFR AFRICAN-AMERICAN > 60; GFR NON-AFRICAN AMERICAN > 60
[2017-12-30] MEDS: Insulin Detemir 100 Units/ml Inj SC SCH (16:48)
[2017-12-31] MEDS: Sodium Chloride 0.9% 1,000 ML IV SCH (02:11)
[2017-12-31] MEDS: Pantoprazole 40 MG in Sodium Chloride 0.9% 100 ML IVPB SCH (05:37)
[2017-12-31 05:45] LABS: HEMOGLOBIN 7.5 g/dL (12.0-16.0); MEAN CELL VOLUME 81.8 fl (81.0-99.0); MEAN CORPUSCULAR HEMOGLOBIN 27.2 pg (27.0-31.0); MEAN CORPUSCULAR HGB CONC 33.3 g/dL (33.0-37.0); RBC 2.77 Mil/uL (3.80-5.20)
[2017-12-31 06:07] LABS: BLOOD UREA NITROGEN 16 mg/dl (7-17); CALCIUM 8.3 mg/dL (8.4-10.2); GFR AFRICAN-AMERICAN > 60; GFR NON-AFRICAN AMERICAN > 60
[2017-12-31] MEDS: Insulin Lispro (humaLOG) 100 Units/ml Inj SC SCH ×4 (06:38→22:07)
[2017-12-31] MEDS ORDERED: Sodium Chloride 0.9% 250 ML IV ONE (07:52)
[2017-12-31] MEDS ORDERED: Etomidate 20 mg/10ml Inj IV ONE (08:05)
[2017-12-31] MEDS ORDERED: Lidocaine PF 2% (5 ml) Inj (For Cardiac Arrhy) IV ONE (08:06)
[2017-12-31] MEDS ORDERED: Propofol 10 mg/ml Inj (20 ML) ONE (08:06)
[2017-12-31] MEDS ORDERED: Midazolam 2 MG/2 ML VIAL ONE (08:06)
--- NOTE | 2017-12-31 09:03 | CP.PCM.PN ---
Subjective - Date & Time of Evaluation Date of Evaluation: 12/31/17 Time of Evaluation: 08:57 - Subjective Subjective: Feeling well. S/p upper endoscopy. Objective - Vital Signs/Intake and Output Vital Signs (last 24 hours): Temp Pulse Resp BP Pulse Ox 97 F L 1 L 16 97/36 L 98 12/31/17 08:45 12/31/17 08:45 12/31/17 08:45 12/31/17 08:45 12/31/17 08:45 Intake and Output: 12/31/17 12/31/17 06:59 18:59 Intake Total 2140 100 Output Total 650 150 Balance 1490 -50 - Medications Medications: Current Medications Hydralazine HCl (Apresoline) 10 mg IV Q6 PRN PRN Reason: SBP >150 Insulin Detemir (Levemir) 27 units SC BID [facility] Last Admin: 12/30/17 16:48 Dose: 27 unit Insulin Human Lispro (Humalog) 0 units SC ACHS [facility] PRN Reason: Protocol Last Admin: 12/31/17 06:38 Dose: Not Given Pantoprazole Sodium (Protonix Ec Tab) 40 mg PO BID [facility] - Labs Labs: 12/31/17 05:00 12/31/17 05:00 PT 15.7 Seconds (9.8-13.1) H 12/30/17 05:20 INR 1.4 (0.9-1.2) H 12/30/17 05:20 APTT 26.3 Seconds (25.6-37.1) 12/30/17 05:20 - Head Exam Head Exam: ATRAUMATIC - Respiratory Exam Respiratory Exam: NORMAL BREATHING PATTERN - Cardiovascular Exam Cardiovascular Exam: REGULAR RHYTHM - GI/Abdominal Exam GI & Abdominal Exam: Normal Bowel Sounds Assessment and Plan (1) GI bleed Assessment & Plan: Upper endoscopy showed duodenal ulcer. No active bleeding at the moment. Change to oral BID pantoprazole. Restart Elliquis in 2 days while on PPI. Patient advised to avoid NSADs Check pathology for H. pylori and eradicate if present. May stop PPI in a month if no further bleeding occurs. Status: Acute
[2017-12-31] MEDS: Insulin Detemir 100 Units/ml Inj SC SCH ×2 (10:30→17:37)
[2017-12-31] MEDS: Pantoprazole 40 mg EC Tab PO SCH ×2 (10:31→17:38)
[2017-12-31] MEDS ORDERED: Metoprolol 1 mg/ml Inj IVP ONE ×2 (10:36→10:38)
--- NOTE | 2017-12-31 11:59 | CP.CCUPN ---
CCU Subjective - Physician Review Subjective (Free Text): Underwent uneventful EGD today AM; +gastric erosions and non-bleeding DU. One hour after return from [facility], developed acute onset PSVT manifest by rapid A Fib with HR 150s and SBP 98 , + dizziness, no CP or SOB, remained awake and alert. Has been off Toprol x 2 days, given Lopressor 5mg IVP and HR immediately slowed to 108 /min. Other Vitals and I/Os reviewed. No fever spikes overnight. ROS: No other pertinent negs or positives on 10+ system review, intubated. PMSFH: All other historical Nursing and physician documentation reviewed to date; no new pertinent info noted relevant to current medical problems. EXAM- HEENT: no icterus, no gaze preference, pupils equal and reactive NECK: No JVD, supple, carotids equal upstroke bilat/no bruits CHEST: decreased BS bases, otherwise clear bilat, no wheezes audible HEART: regular distant, S1S2, no rubs. ABD: soft, no distention, no tympany, no palp tenderness, BS hypoactive EXT: No edema. No peripheral/ digital cyanosis, no calf tenderness or palpable cords, distal pulses intact and symmetrical. NEURO: no gross focal motor deficits SKIN: no rashes, warm and dry. LABS: WBC= 7.0 HGB= 7.5 PLTs= 166K Na= 141 K= 4.2 CL= 107 HCO3= 25 BUN/Cr= 16/0.6 BS= 138 MAJOR PROBLEMS: 1. Acute Anemia 2. UGI Bleed 3. PSVT 4. Chronic A Fib on Eliquis 5. DM II PLAN: 1. Resume Metoprolol and Cardizem. 2. PPi changed to 40mg BID PO 3. If anemia worsens or Hgb drops further with any ongoing IVF hydration, may need PRBCs if counts are below 7.0 HGB. 4. Maintain normoglycemia 5. Off Eliquis for now. CCU Objective - Vital Signs / Intake & Output Vital Signs (Last 4 hours): Vital Signs Temp Pulse Resp BP Pulse Ox 12/31/17 10:45 146 H 98/51 L 12/31/17 10:00 129 H 27 H 98/51 L 95 12/31/17 09:00 97 F L 99 H 14 113/73 99 12/31/17 08:45 97 F L 91 H 16 97/36 L 98 12/31/17 08:19 97.1 F L 12/31/17 08:08 96 H 16 122/53 L 98 Intake and Output (Last 8hrs): Intake & Output 12/30/17 12/31/17 12/31/17 22:59 06:59 14:59 Intake Total 1900 1530 150 Output Total 400 450 150 Balance 1500 1080 0 Intake: IV 810 1360 150 Intake, Piggyback 40 170 Oral 1050 0 Tube Feeding 0 Output: Urine 400 450 150 Urine, Voided 400 450 150 Other: # Voids Urine, Voided 0 1 # Bowel Movements 0 0 - Medications Active Medications: Active Medications Generic Name Dose Route Start Last Admin Trade Name Freq PRN Reason Stop Dose Admin Hydralazine HCl 10 mg 12/30/17 06:29 Apresoline IV Q6 PRN SBP >150 Insulin Detemir 27 units 12/30/17 09:00 12/31/17 10:30 Levemir SC 27 unit BID [facility] Administration Insulin Human Lispro 0 units 12/30/17 07:30 12/31/17 06:38 Humalog SC Not Given ACHS [facility] Protocol Pantoprazole Sodium 40 mg 12/31/17 09:00 12/31/17 10:31 Protonix Ec Tab PO 40 mg BID [facility] Administration - Patient Studies Lab Studies: Microbiology Studies 12/30/17 02:53 Blood Culture - Preliminary Blood NO GROWTH AFTER 24 HOURS Lab Studies 12/31/17 12/31/17 12/31/17 Range/Units 11:25 05:11 05:00 WBC (4.8-10.8) K/uL RBC (3.80-5.20) Mil/uL Hgb (12.0-16.0) g/dL Hct (34.0-47.0) % MCV (81.0-99.0) fl MCH (27.0-31.0) pg MCHC (33.0-37.0) g/dL RDW (11.5-14.5) % Plt Count (130-400) K/uL Sodium 141 (132-148) mmol/l Potassium 4.2 (3.6-5.0) MMOL/L Chloride 107 (98-107) mmol/L Carbon Dioxide 26 (22-30) mmol/L Anion Gap 12 (10-20) BUN 16 (7-17) mg/dl Creatinine 0.6 L (0.7-1.2) mg/dl Est GFR ( Amer) > 60 Est GFR (Non-Af Amer) > 60 POC Glucose (mg/dL) 201 H 124 H (65-110) mg/dL Random Glucose 138 H (65-105) mg/dL Calcium 8.3 L (8.4-10.2) mg/dL 12/31/17 12/30/17 12/30/17 Range/Units 05:00 21:39 16:53 WBC 7.0 (4.8-10.8) K/uL RBC 2.77 L (3.80-5.20) Mil/uL Hgb 7.5 L (12.0-16.0) g/dL Hct 22.6 L (34.0-47.0) % MCV 81.8 (81.0-99.0) fl MCH 27.2 (27.0-31.0) pg MCHC 33.3 (33.0-37.0) g/dL RDW 16.0 H (11.5-14.5) % Plt Count 166 (130-400) K/uL Sodium (132-148) mmol/l Potassium (3.6-5.0) MMOL/L Chloride (98-107) mmol/L Carbon Dioxide (22-30) mmol/L Anion Gap (10-20) BUN (7-17) mg/dl Creatinine (0.7-1.2) mg/dl Est GFR ( Amer) Est GFR (Non-Af Amer) POC Glucose (mg/dL) 220 H 256 H (65-110) mg/dL Random Glucose (65-105) mg/dL Calcium (8.4-10.2) mg/dL 12/30/17 12/30/17 12/30/17 Range/Units 16:10 12:15 11:51 WBC 13.9 H (4.8-10.8) K/uL RBC 3.34 L (3.80-5.20) Mil/uL Hgb 8.8 L (12.0-16.0) g/dL Hct 27.3 L (34.0-47.0) % MCV 81.7 D (81.0-99.0) fl MCH 26.4 L (27.0-31.0) pg MCHC 32.3 L (33.0-37.0) g/dL RDW 15.9 H (11.5-14.5) % Plt Count 236 (130-400) K/uL Sodium 138 (132-148) mmol/l Potassium 4.3 (3.6-5.0) MMOL/L Chloride 103 (98-107) mmol/L Carbon Dioxide 22 (22-30) mmol/L Anion Gap 17 (10-20) BUN 26 H (7-17) mg/dl Creatinine 0.6 L (0.7-1.2) mg/dl Est GFR ( Amer) > 60 Est GFR (Non-Af Amer) > 60 POC Glucose (mg/dL) 272 H (65-110) mg/dL Random Glucose 257 H (65-105) mg/dL Calcium 8.6 (8.4-10.2) mg/dL Laboratory Results - last 24 hr 12/30/17 12/30/17 12/30/17 11:51 12:15 16:10 WBC 13.9 H RBC 3.34 L Hgb 8.8 L Hct 27.3 L MCV 81.7 D MCH 26.4 L MCHC 32.3 L RDW 15.9 H Plt Count 236 Sodium 138 Potassium 4.3 Chloride 103 Carbon Dioxide 22 Anion Gap 17 BUN 26 H Creatinine 0.6 L Est GFR ( Amer) > 60 Est GFR (Non-Af Amer) > 60 POC Glucose (mg/dL) 272 H Random Glucose 257 H Calcium 8.6 12/30/17 12/30/17 12/31/17 16:53 21:39 05:00 WBC 7.0 RBC 2.77 L Hgb 7.5 L Hct 22.6 L MCV 81.8 MCH 27.2 MCHC 33.3 RDW 16.0 H Plt Count 166 Sodium Potassium Chloride Carbon Dioxide Anion Gap BUN Creatinine Est GFR ( Amer) Est GFR (Non-Af Amer) POC Glucose (mg/dL) 256 H 220 H Random Glucose Calcium 12/31/17 12/31/17 12/31/17 05:00 05:11 11:25 WBC RBC Hgb Hct MCV MCH MCHC RDW Plt Count Sodium 141 Potassium 4.2 Chloride 107 Carbon Dioxide 26 Anion Gap 12 BUN 16 Creatinine 0.6 L Est GFR ( Amer) > 60 Est GFR (Non-Af Amer) > 60 POC Glucose (mg/dL) 124 H 201 H Random Glucose 138 H Calcium 8.3 L Fingerstick Blood Sugar Results: 124 Review of Systems - Review of Systems All systems: reviewed and no additional remarkable complaints except (as above) Critical Care Progress Note - Nutrition Nutrition: Nutrition Category Date Time Status Diabetic [Consistent Carbohydrate] [DIET] Diets 12/31/17 Breakfast Active
--- NOTE | 2017-12-31 14:07 | CP.PCM.PN ---
Subjective - Date & Time of Evaluation Date of Evaluation: 12/31/17 Time of Evaluation: 14:07 - Subjective Subjective: events of this am noted feels better except for dizziness on movement bp low but improving Objective - Vital Signs/Intake and Output Vital Signs (last 24 hours): Temp Pulse Resp BP Pulse Ox 97.4 F L 93 H 17 90/43 L 100 12/31/17 12:00 12/31/17 12:00 12/31/17 12:00 12/31/17 12:00 12/31/17 12:00 Intake and Output: 12/31/17 12/31/17 06:59 18:59 Intake Total 2140 270 Output Total 650 150 Balance 1490 120 - Medications Medications: Current Medications Hydralazine HCl (Apresoline) 10 mg IV Q6 PRN PRN Reason: SBP >150 Insulin Detemir (Levemir) 27 units SC BID [facility] Last Admin: 12/31/17 10:30 Dose: 27 unit Insulin Human Lispro (Humalog) [address] [facility] PRN Reason: Protocol Last Admin: 12/31/17 12:16 Dose: 2 units Morphine Sulfate (Morphine) 2 mg IVP Q4 PRN PRN Reason: Pain, moderate (4-7) Last Admin: 12/31/17 13:06 Dose: 2 mg Pantoprazole Sodium (Protonix Ec Tab) 40 mg PO BID [facility] Last Admin: 12/31/17 10:31 Dose: 40 mg - Labs Labs: 12/31/17 05:00 12/31/17 05:00 PT 15.7 Seconds (9.8-13.1) H 12/30/17 05:20 INR 1.4 (0.9-1.2) H 12/30/17 05:20 APTT 26.3 Seconds (25.6-37.1) 12/30/17 05:20 - Constitutional Appears: Chronically Ill - Head Exam Head Exam: ATRAUMATIC, NORMAL INSPECTION, NORMOCEPHALIC - Eye Exam Eye Exam: EOMI, Normal appearance, PERRL Pupil Exam: NORMAL ACCOMODATION, PERRL - ENT Exam ENT Exam: Mucous Membranes Moist, Normal Exam - Neck Exam Neck Exam: Full ROM, Normal Inspection. absent: Lymphadenopathy - Respiratory Exam Respiratory Exam: Clear to Ausculation Bilateral, NORMAL BREATHING PATTERN - Cardiovascular Exam Cardiovascular Exam: Irregular Rhythm, +S1, +S2. absent: Murmur - GI/Abdominal Exam GI & Abdominal Exam: Soft, Normal Bowel Sounds. absent: Tenderness - Rectal Exam Rectal Exam: NORMAL INSPECTION - Extremities Exam Extremities Exam: Full ROM, Normal Capillary Refill, Normal Inspection. absent : Joint Swelling, Pedal Edema - Back Exam Back Exam: NORMAL INSPECTION - Neurological Exam Neurological Exam: Alert, Awake, CN II-XII Intact, Normal Gait, Oriented x3 - Psychiatric Exam Psychiatric exam: Normal Affect, Normal Mood - Skin Skin Exam: Dry, Intact, Normal Color, Warm Assessment and Plan - Assessment and Plan (Free Text) Assessment: anemia duodenal ulcer gi bleed atrial fib Plan: continue present rx cardiology eval
[2018-01-01 05:41] LABS: MEAN CELL VOLUME 82.5 fl (81.0-99.0); RBC 3.41 Mil/uL (3.80-5.20); WHITE BLOOD COUNT 7.5 K/uL (4.8-10.8)
[2018-01-01 06:04] LABS: BLOOD UREA NITROGEN 11 mg/dl (7-17); CALCIUM 8.8 mg/dL (8.4-10.2); GFR AFRICAN-AMERICAN > 60; GFR NON-AFRICAN AMERICAN > 60
[2018-01-01 06:20] LABS: HEMOGLOBIN 9.6 g/dL (12.0-16.0)
[2018-01-01] MEDS: Insulin Lispro (humaLOG) 100 Units/ml Inj SC SCH ×4 (08:00→22:20)
[2018-01-01] MEDS: Pantoprazole 40 mg EC Tab PO SCH ×2 (08:44→17:21)
[2018-01-01] MEDS: Insulin Detemir 100 Units/ml Inj SC SCH ×2 (08:45→17:21)
--- NOTE | 2018-01-01 10:43 | CP.PCM.PN ---
Subjective - Date & Time of Evaluation Date of Evaluation: 01/01/18 Time of Evaluation: 10:44 - Subjective Subjective: FEELS BETTER NO RECURRENCE OF GI BLEED TOLERATED DIET TODAY OOB TO CHAIR VSS Objective - Vital Signs/Intake and Output Vital Signs (last 24 hours): Temp Pulse Resp BP Pulse Ox 98.1 F 93 H 15 133/73 100 01/01/18 08:00 01/01/18 08:00 01/01/18 08:00 01/01/18 08:00 01/01/18 08:00 Intake and Output: 01/01/18 01/01/18 06:59 18:59 Intake Total 425 Output Total 250 Balance 175 - Medications Medications: Current Medications Hydralazine HCl (Apresoline) 10 mg IV Q6 PRN PRN Reason: SBP >150 Insulin Detemir (Levemir) 27 units SC BID [facility] Last Admin: 01/01/18 08:45 Dose: 27 unit Insulin Human Lispro (Humalog) 0 units SC ACHS [facility] PRN Reason: Protocol Last Admin: 01/01/18 08:00 Dose: Not Given Morphine Sulfate (Morphine) 2 mg IVP Q4 PRN PRN Reason: Pain, moderate (4-7) Last Admin: 12/31/17 13:06 Dose: 2 mg Pantoprazole Sodium (Protonix Ec Tab) 40 mg PO BID [facility] Last Admin: 01/01/18 08:44 Dose: 40 mg - Labs Labs: 01/01/18 04:58 01/01/18 04:58 PT 15.7 Seconds (9.8-13.1) H 12/30/17 05:20 INR 1.4 (0.9-1.2) H 12/30/17 05:20 APTT 26.3 Seconds (25.6-37.1) 12/30/17 05:20 - Constitutional Appears: No Acute Distress - Head Exam Head Exam: ATRAUMATIC, NORMAL INSPECTION, NORMOCEPHALIC - Eye Exam Eye Exam: EOMI, Normal appearance, PERRL Pupil Exam: NORMAL ACCOMODATION, PERRL - ENT Exam ENT Exam: Mucous Membranes Moist, Normal Exam - Neck Exam Neck Exam: Full ROM, Normal Inspection. absent: Lymphadenopathy - Respiratory Exam Respiratory Exam: Clear to Ausculation Bilateral, NORMAL BREATHING PATTERN - Cardiovascular Exam Cardiovascular Exam: REGULAR RHYTHM, +S1, +S2. absent: Murmur - GI/Abdominal Exam GI & Abdominal Exam: Soft, Normal Bowel Sounds. absent: Tenderness - Rectal Exam Rectal Exam: NORMAL INSPECTION - Extremities Exam Extremities Exam: Full ROM, Normal Capillary Refill, Normal Inspection. absent : Joint Swelling, Pedal Edema - Back Exam Back Exam: NORMAL INSPECTION - Neurological Exam Neurological Exam: Alert, Awake, CN II-XII Intact, Normal Gait, Oriented x3 - Psychiatric Exam Psychiatric exam: Normal Affect, Normal Mood - Skin Skin Exam: Dry, Intact, Normal Color, Warm Assessment and Plan - Assessment and Plan (Free Text) Assessment: ACUTE GI BLEED--RESOLVED DUODENAL ULCER ANEMIA OF BLOOD LOSS-STABLE PAROXYSMAL ATRIAL FIB Plan: CONTINUE RX ORDERED CARDIOLOGY RECOMMENDATION RE-DISCONTINUATION OF ANTICOAGULATIN IN THIS PT WITH GI BLEED
--- NOTE | 2018-01-01 11:24 | CP.CCUPN ---
CCU Subjective - Physician Review Events Since Last Encounter (Free Text): 01/01/18 11:20 alert and oriented, No sob. no pain, No active GIB IN SR now CCU Objective - Vital Signs / Intake & Output Vital Signs (Last 4 hours): Vital Signs Temp Pulse Resp BP Pulse Ox 01/01/18 08:00 98.1 F 93 H 15 133/73 100 Intake and Output (Last 8hrs): Intake & Output 12/31/17 01/01/18 01/01/18 22:59 06:59 14:59 Intake Total 650 100 Output Total 250 Balance 650 -150 Intake: Oral 0 100 Blood Product 650 Output: Urine 250 Urine, Voided 250 Other: # Voids Urine, Voided 1 # Bowel Movements 1 - Physical Exam Narrative Physical Exam (Free Text): 01/01/18 11:21 P/E neck; No JVd Lungs: No ronchi, crackles Abdomen: soft, non-tender Ext; No edema Heart: No gallop. - Medications Active Medications: Active Medications Generic Name Dose Route Start Last Admin Trade Name Freq PRN Reason Stop Dose Admin Hydralazine HCl 10 mg 12/30/17 06:29 Apresoline IV Q6 PRN SBP >150 Insulin Detemir 27 units 12/30/17 09:00 01/01/18 08:45 Levemir SC 27 unit BID [facility] Administration Insulin Human Lispro 0 units 12/30/17 07:30 01/01/18 08:00 Humalog SC Not Given ACHS [facility] Protocol Morphine Sulfate 2 mg 12/31/17 13:01 12/31/17 13:06 Morphine IVP 2 mg Q4 PRN Administration Pain, moderate (4-7) Pantoprazole Sodium 40 mg 12/31/17 09:00 01/01/18 08:44 Protonix Ec Tab PO 40 mg BID [facility] Administration - Patient Studies Lab Studies: Microbiology Studies 12/30/17 02:53 Blood Culture - Preliminary Blood NO GROWTH AFTER 48 HOURS 12/30/17 17:20 MRSA Culture (Admit) - Final Naris MRSA NOT DETECTED Lab Studies 01/01/18 01/01/18 01/01/18 Range/Units 04:58 04:58 04:44 WBC 7.5 (4.8-10.8) K/uL RBC 3.41 L (3.80-5.20) Mil/uL Hgb 9.6 L D (12.0-16.0) g/dL Hct 28.2 L (34.0-47.0) % MCV 82.5 (81.0-99.0) fl MCH 28.0 (27.0-31.0) pg MCHC 34.0 (33.0-37.0) g/dL RDW 16.0 H (11.5-14.5) % Plt Count 177 (130-400) K/uL Sodium 140 (132-148) mmol/l Potassium 3.8 (3.6-5.0) MMOL/L Chloride 105 (98-107) mmol/L Carbon Dioxide 25 (22-30) mmol/L Anion Gap 14 (10-20) BUN 11 (7-17) mg/dl Creatinine 0.6 L (0.7-1.2) mg/dl Est GFR ( Amer) > 60 Est GFR (Non-Af Amer) > 60 POC Glucose (mg/dL) 128 H (65-110) mg/dL Random Glucose 115 H (65-105) mg/dL Calcium 8.8 (8.4-10.2) mg/dL Blood Type Antibody Screen Crossmatch BBK History Checked 12/31/17 12/31/17 12/31/17 Range/Units 21:23 17:05 11:25 WBC (4.8-10.8) K/uL RBC (3.80-5.20) Mil/uL Hgb (12.0-16.0) g/dL Hct (34.0-47.0) % MCV (81.0-99.0) fl MCH (27.0-31.0) pg MCHC (33.0-37.0) g/dL RDW (11.5-14.5) % Plt Count (130-400) K/uL Sodium (132-148) mmol/l Potassium (3.6-5.0) MMOL/L Chloride (98-107) mmol/L Carbon Dioxide (22-30) mmol/L Anion Gap (10-20) BUN (7-17) mg/dl Creatinine (0.7-1.2) mg/dl Est GFR ( Amer) Est GFR (Non-Af Amer) POC Glucose (mg/dL) 153 H 162 H 201 H (65-110) mg/dL Random Glucose (65-105) mg/dL Calcium (8.4-10.2) mg/dL Blood Type Antibody Screen Crossmatch BBK History Checked 12/30/17 Range/Units 02:59 WBC (4.8-10.8) K/uL RBC (3.80-5.20) Mil/uL Hgb (12.0-16.0) g/dL Hct (34.0-47.0) % MCV (81.0-99.0) fl MCH (27.0-31.0) pg MCHC (33.0-37.0) g/dL RDW (11.5-14.5) % Plt Count (130-400) K/uL Sodium (132-148) mmol/l Potassium (3.6-5.0) MMOL/L Chloride (98-107) mmol/L Carbon Dioxide (22-30) mmol/L Anion Gap (10-20) BUN (7-17) mg/dl Creatinine (0.7-1.2) mg/dl Est GFR ( Amer) Est GFR (Non-Af Amer) POC Glucose (mg/dL) (65-110) mg/dL Random Glucose (65-105) mg/dL Calcium (8.4-10.2) mg/dL Blood Type A POSITIVE Antibody Screen Negative Crossmatch See Detail BBK History Checked No verified bt Laboratory Results - last 24 hr 12/30/17 12/31/17 12/31/17 02:59 11:25 17:05 WBC RBC Hgb Hct MCV MCH MCHC RDW Plt Count Sodium Potassium Chloride Carbon Dioxide Anion Gap BUN Creatinine Est GFR ( Amer) Est GFR (Non-Af Amer) POC Glucose (mg/dL) 201 H 162 H Random Glucose Calcium Blood Type A POSITIVE Antibody Screen Negative Crossmatch See Detail BBK History Checked No verified bt 12/31/17 01/01/18 01/01/18 21:23 04:44 04:58 WBC 7.5 RBC 3.41 L Hgb 9.6 L D Hct 28.2 L MCV 82.5 MCH 28.0 MCHC 34.0 RDW 16.0 H Plt Count 177 Sodium Potassium Chloride Carbon Dioxide Anion Gap BUN Creatinine Est GFR ( Amer) Est GFR (Non-Af Amer) POC Glucose (mg/dL) 153 H 128 H Random Glucose Calcium Blood Type Antibody Screen Crossmatch BBK History Checked 01/01/18 04:58 WBC RBC Hgb Hct MCV MCH MCHC RDW Plt Count Sodium 140 Potassium 3.8 Chloride 105 Carbon Dioxide 25 Anion Gap 14 BUN 11 Creatinine 0.6 L Est GFR ( Amer) > 60 Est GFR (Non-Af Amer) > 60 POC Glucose (mg/dL) Random Glucose 115 H Calcium 8.8 Blood Type Antibody Screen Crossmatch BBK History Checked Fingerstick Blood Sugar Results: 128 Critical Care Progress Note - Nutrition Nutrition: Nutrition Category Date Time Status Diabetic [Consistent Carbohydrate] [DIET] Diets 12/31/17 Breakfast Active Assessment/Plan - Assessment and Plan (Free Text) Assessment: MAJOR PROBLEMS: 1. Acute Anemia : no active bleeding now, Hb stable 2. UGI Bleed 3. PSVT: in SR now, 4. Prox- A Fib was on Eliquis, held now due to GIB, in SR at the moment 5. DM II PLAN: 1. Resume Metoprolol and Cardizem.: a r collections rep to see her today, Dr. Long 2. PPi , 40mg BID PO 3. Transfer to tele. 4. Maintain normoglycemia 5. Off Eliquis for now.
[2018-01-01 12:24] LABS: T4 7.26 ug/dl (5.5-11.0)
--- NOTE | 2018-01-01 12:33 | CP.PCM.CON ---
History of Present Illness - History of Present Illness History of Present Illness: This 72-year-old female came into the hospital with complaints of bloody vomiting and dark stools. The stools were positive for presence of blood. Endoscopy done yesterday shows gastritis and nonbleeding duodenal ulcer. The patient indicated that she had been on oral anticoagulation chronically following an episode of pulmonary embolism more than 4 years back subsequent to which she had been kept on oral anticoagulation. According to her a formal diagnosis of atrial fibrillation had never been established. She is a long- standing hypertensive and diabetic and chronically overweight. She had never suffered a myocardial infarction and denies symptoms suggestive of congestive cardiac failure. She was though, taking 40 mg of Lasix every day. Following her endoscopy yesterday the patient had a bout of atrial fibrillation which required intravenous beta blockade to slow her heart rate down. This morning the patient is back in sinus rhythm. Physical examination shows an elderly overweight pleasant female who is quite alert awake and coherent. She is not pale and has a heart rate of 80 bpm regular. Her blood pressure was 142/72 mmHg. Her jugular venous pressure was not elevated and there was no edema or lower extremity. Her extremities were warm and her nailbeds were pink there was no central or peripheral cyanosis. The apex was not palpable. The first and second heart sounds were normal. There was no murmur or gallop there were no rales. Her abdomen was soft and liver and spleen are not palpable. Her electro-cardiogram showed sinus rhythm with no Q waves. Nonspecific ST-T changes were detected. Cardiac monitoring strips post endoscopy due clearly show an episode of atrial fibrillation. Her lab data was noted. Impression: Acute GI bleed probably secondary to gastritis and peptic ulcer disease probably due to non-steroidal anti-inflammatory drug use. Chronic anticoagulation because of atrial fibrillation(which is transient and recurrent ) chronic exogenous obesity, hypertension, diabetes mellitus, history of cigarette use more than 20 years back. I have explained the need for chronic anticoagulation given her high CHADS2 Vasc score. If the GI bleed is due to a bleeding episode secondary to Ansaid use a decision to continue chronic oral anticoagulation would be in the long- run beneficial to her. This decision can be made by her merchandise adjustment clerk and her when she returns to see him. In the meantime at this point she is off of anticoagulation needs and back in sinus rhythm and hemodynamically stable. Past Patient History - Past Social History Smoking Status: Former Smoker - CARDIAC Hx Hypertension: Yes - PULMONARY Hx Pulmonary Embolism: Yes - HEENT Other/Comment: detached retina left eye - ENDOCRINE/METABOLIC Hx Diabetes Mellitus Type 2: Yes - MUSCULOSKELETAL/RHEUMATOLOGICAL Hx Falls: No - PSYCHIATRIC Hx Substance Use: No - SURGICAL HISTORY Other/Comment: Fx to the right orbital - ANESTHESIA Hx Anesthesia: Yes Hx Anesthesia Reactions: No Hx Malignant Hyperthermia: No Meds Allergies/Adverse Reactions: Allergies Allergy/AdvReac Type Severity Reaction Status Date / Time No Known Allergies Allergy Verified 12/30/17 01:58 - Medications Medications: Current Medications Diltiazem HCl (Cardizem) 60 mg PO Q8 [facility] Hydralazine HCl (Apresoline) 10 mg IV Q6 PRN PRN Reason: SBP >150 Insulin Detemir (Levemir) 27 units SC BID [facility] Last Admin: 01/01/18 08:45 Dose: 27 unit Insulin Human Lispro (Humalog) 0 units SC A[facility] PRN Reason: Protocol Last Admin: 01/01/18 08:00 Dose: Not Given Morphine Sulfate (Morphine) 2 mg IVP Q4 PRN PRN Reason: Pain, moderate (4-7) Last Admin: 12/31/17 13:06 Dose: 2 mg Pantoprazole Sodium (Protonix Ec Tab) 40 mg PO BID [facility] Last Admin: 01/01/18 08:44 Dose: 40 mg Results - Vital Signs Recent Vital Signs: Last Vital Signs Temp 98.1 F 01/01/18 08:00 Pulse 85 01/01/18 10:00 Resp 19 01/01/18 10:00 BP 130/67 01/01/18 10:00 Pulse Ox 98 01/01/18 10:00 - Labs Result Diagrams: 01/01/18 04:58 01/01/18 04:58 Labs: Laboratory Results - last 24 hr 12/30/17 12/31/17 12/31/17 02:59 17:05 21:23 WBC RBC Hgb Hct MCV MCH MCHC RDW Plt Count Sodium Potassium Chloride Carbon Dioxide Anion Gap BUN Creatinine Est GFR ( Amer) Est GFR (Non-Af Amer) POC Glucose (mg/dL) 162 H 153 H Random Glucose Calcium Blood Type A POSITIVE Antibody Screen Negative Crossmatch See Detail BBK History Checked No verified bt 01/01/18 01/01/18 01/01/18 04:44 04:58 04:58 WBC 7.5 RBC 3.41 L Hgb 9.6 L D Hct 28.2 L MCV 82.5 MCH 28.0 MCHC 34.0 RDW 16.0 H Plt Count 177 Sodium 140 Potassium 3.8 Chloride 105 Carbon Dioxide 25 Anion Gap 14 BUN 11 Creatinine 0.6 L Est GFR ( Amer) > 60 Est GFR (Non-Af Amer) > 60 POC Glucose (mg/dL) 128 H Random Glucose 115 H Calcium 8.8 Blood Type Antibody Screen Crossmatch BBK History Checked 01/01/18 11:40 WBC RBC Hgb Hct MCV MCH MCHC RDW Plt Count Sodium Potassium Chloride Carbon Dioxide Anion Gap BUN Creatinine Est GFR ( Amer) Est GFR (Non-Af Amer) POC Glucose (mg/dL) 181 H Random Glucose Calcium Blood Type Antibody Screen Crossmatch BBK History Checked
--- NOTE | 2018-01-01 14:47 | CARD ---
APPROVED REPORT EKG Measurement Heart [id number] <Conclusion> Normal sinus rhythm Low voltage QRS Cannot rule out Anteroseptal infarct, age undetermined Abnormal ECG
[2018-01-02 06:15] LABS: HEMOGLOBIN 9.7 g/dL (12.0-16.0); MEAN CELL VOLUME 83.1 fl (81.0-99.0); MEAN CORPUSCULAR HEMOGLOBIN 28.1 pg (27.0-31.0); MEAN CORPUSCULAR HGB CONC 33.8 g/dL (33.0-37.0); RBC 3.44 Mil/uL (3.80-5.20); RED CELL DISTRIBUTION WIDTH 15.6 % (11.5-14.5); WHITE BLOOD COUNT 7.7 K/uL (4.8-10.8)
[2018-01-02 06:29] LABS: ALB/GLOB RATIO 1.1 (1.0-2.1); ALBUMIN 3.1 g/dL (3.5-5.0); ALT/SGPT 37 U/L (9-52); AST/SGOT 20 U/L (14-36); BLOOD UREA NITROGEN 8 mg/dl (7-17); CALCIUM 8.9 mg/dL (8.4-10.2); GFR AFRICAN-AMERICAN > 60; GFR NON-AFRICAN AMERICAN > 60
[2018-01-02] MEDS: Insulin Lispro (humaLOG) 100 Units/ml Inj SC SCH (06:38)
[2018-01-02] MEDS ORDERED: Potassium Chloride 20 mEq ER Tab PO ONE ×2 (08:21→09:57)
--- NOTE | 2018-01-02 08:27 | CP.PCM.PN ---
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 Hirsch. Objective - Vital Signs/Intake and Output Vital Signs (last 24 hours): Temp Pulse Resp BP Pulse Ox 98.1 F 84 14 147/71 99 01/02/18 04:00 01/02/18 06:00 01/02/18 06:00 01/02/18 06:00 01/02/18 06:00 Intake and Output: 01/02/18 01/02/18 06:59 18:59 Output Total 900 Balance -900 - Medications Medications: Current Medications Diltiazem HCl (Cardizem) 60 mg PO Q8@0500,1300,2100 [facility] Last Admin: 01/02/18 05:30 Dose: 60 mg Hydralazine HCl (Apresoline) 10 mg IV Q6 PRN PRN Reason: SBP >150 Insulin Detemir (Levemir) 27 units SC BID [facility] Last Admin: 01/01/18 17:21 Dose: 27 unit Insulin Human Lispro (Humalog) 0 units SC ACHS [facility] PRN Reason: Protocol Last Admin: 01/02/18 06:38 Dose: Not Given Morphine Sulfate (Morphine) 2 mg IVP Q4 PRN PRN Reason: Pain, moderate (4-7) Last Admin: 12/31/17 13:06 Dose: 2 mg Pantoprazole Sodium (Protonix Ec Tab) 40 mg PO BID [facility] Last Admin: 01/01/18 17:21 Dose: 40 mg Potassium Chloride (K-Dur 20 Meq Er Tab) 20 meq PO ONCE ONE Stop: 01/02/18 08:22 - Labs Labs: 01/02/18 05:12 01/02/18 05:12 PT 15.7 Seconds (9.8-13.1) H 12/30/17 05:20 INR 1.4 (0.9-1.2) H 12/30/17 05:20 APTT 26.3 Seconds (25.6-37.1) 12/30/17 05:20
[2018-01-02 08:35] VITALS: BP 142/65; PULSE 77; RESP 10; TEMP 97.5; O2SAT 96
[2018-01-02] MEDS: Insulin Detemir 100 Units/ml Inj SC SCH (08:52)
[2018-01-02] MEDS: Pantoprazole 40 mg EC Tab PO SCH (08:52)
--- NOTE | 2018-01-02 10:01 | CP.PCM.DIS ---
Provider - Provider Date of Admission: 12/30/17 03:52 Attending physician: Justin Hirsch MD Primary care physician: Piotr Houston MD Time Spent in preparation of Discharge (in minutes): 35 Diagnosis - Discharge Diagnosis (1) Duodenal ulcer Status: Acute (2) Symptomatic anemia Status: Acute (3) Paroxysmal atrial fibrillation Status: Acute (4) Anemia Status: Acute (5) GI bleed Status: Acute (6) Hypertension Status: Acute (7) Diabetes 1.5, managed as type 2 Status: Acute (8) History of pulmonary embolism Status: Acute (9) Hypokalemia Status: Acute Hospital Course - Lab Results Lab Results: Micro Results 12/30/17 02:53 Blood Blood Culture - Preliminary NO GROWTH AFTER 3 DAYS 12/30/17 17:20 Naris MRSA Culture (Admit) - Final MRSA NOT DETECTED Most Recent Lab Values WBC 7.7 K/uL (4.8-10.8) 01/02/18 05:12 RBC 3.44 Mil/uL (3.80-5.20) L 01/02/18 05:12 Hgb 9.7 g/dL (12.0-16.0) L 01/02/18 05:12 Hct 28.6 % (34.0-47.0) L 01/02/18 05:12 MCV 83.1 fl (81.0-99.0) 01/02/18 05:12 MCH 28.1 pg (27.0-31.0) 01/02/18 05:12 MCHC 33.8 g/dL (33.0-37.0) 01/02/18 05:12 RDW 15.6 % (11.5-14.5) H 01/02/18 05:12 Plt Count 175 K/uL (130-400) 01/02/18 05:12 MPV 8.9 fl (7.2-11.7) 12/30/17 03:11 Neut % (Auto) 88.2 % (50.0-75.0) H 12/30/17 03:11 Lymph % (Auto) 9.1 % (20.0-40.0) L 12/30/17 03:11 Clark % (Auto) 2.1 % (0.0-10.0) 12/30/17 03:11 Eos % (Auto) 0.1 % (0.0-4.0) 12/30/17 03:11 Baso % (Auto) 0.5 % (0.0-2.0) 12/30/17 03:11 Neut # (Auto) 13.8 K/uL (1.8-7.0) H 12/30/17 03:11 Lymph # (Auto) 1.4 K/uL (1.0-4.3) 12/30/17 03:11 Clark # (Auto) 0.3 K/uL (0.0-0.8) 12/30/17 03:11 Eos # (Auto) 0.0 K/uL (0.0-0.7) 12/30/17 03:11 Baso # (Auto) 0.1 K/uL (0.0-0.2) 12/30/17 03:11 Neutrophils % (Manual) 90 % (42-75) H 12/30/17 03:11 Lymphocytes % (Manual) 7 % (20-50) L 12/30/17 03:11 Monocytes % (Manual) 3 % (0-10) 12/30/17 03:11 Platelet Estimate Normal (NORMAL) 12/30/17 03:11 RBC Morphology Normal (NORMAL) 12/30/17 03:11 PT 15.7 Seconds (9.8-13.1) H 12/30/17 05:20 INR 1.4 (0.9-1.2) H 12/30/17 05:20 APTT 26.3 Seconds (25.6-37.1) 12/30/17 05:20 pO2 21 mm/Hg (30-55) L 12/30/17 03:04 VBG pH 7.36 (7.32-7.43) 12/30/17 03:04 VBG pCO2 44 mmHg (40-60) 12/30/17 03:04 VBG HCO3 22.5 mmol/L 12/30/17 03:04 VBG Total CO2 26.3 mmol/L (22-28) 12/30/17 03:04 VBG O2 Sat (Calc) 33.8 % (40-65) L 12/30/17 03:04 VBG Base Excess -0.8 mmol/L (0.0-2.0) L 12/30/17 03:04 VBG Potassium 4.9 mmol/L (3.6-5.2) 12/30/17 03:04 Sodium 135.0 mmol/L (132-148) 12/30/17 03:04 Chloride 100.0 mmol/L (98-107) 12/30/17 03:04 Glucose 461 mg/dL (65-105) H* 12/30/17 03:04 Lactate 2.9 mmol/L (0.7-2.1) H 12/30/17 03:04 FiO2 21.0 % 12/30/17 03:04 Crit Value Called To Ayaz davis 12/30/17 03:04 Crit Value Called By 292 12/30/17 03:04 Crit Value Read Back Y 12/30/17 03:04 Blood Gas Notified Time 308 12/30/17 03:04 Sodium 142 mmol/l (132-148) 01/02/18 05:12 Potassium 3.4 MMOL/L (3.6-5.0) L 01/02/18 05:12 Chloride 104 mmol/L (98-107) 01/02/18 05:12 Carbon Dioxide 25 mmol/L (22-30) 01/02/18 05:12 Anion Gap 16 (10-20) 01/02/18 05:12 BUN 8 mg/dl (7-17) 01/02/18 05:12 Creatinine 0.5 mg/dl (0.7-1.2) L 01/02/18 05:12 Est GFR ( Amer) > 60 01/02/18 05:12 Est GFR (Non-Af Amer) > 60 01/02/18 05:12 POC Glucose (mg/dL) 116 mg/dL (65-110) H 01/02/18 06:07 Random Glucose 139 mg/dL (65-105) H 01/02/18 05:12 Calcium 8.9 mg/dL (8.4-10.2) 01/02/18 05:12 Total Bilirubin 0.4 mg/dl (0.2-1.3) 01/02/18 05:12 AST 20 U/L (14-36) 01/02/18 05:12 ALT 37 U/L (9-52) 01/02/18 05:12 Alkaline Phosphatase 77 U/L (38-126) 01/02/18 05:12 Troponin I < 0.0120 ng/mL (0.00-0.120) 12/30/17 03:11 Total Protein 5.9 G/DL (6.3-8.2) L 01/02/18 05:12 Albumin 3.1 g/dL (3.5-5.0) L 01/02/18 05:12 Globulin 2.8 gm/dL (2.2-3.9) 01/02/18 05:12 Albumin/Globulin Ratio 1.1 (1.0-2.1) 01/02/18 05:12 Lipase 29 U/L (23-300) 12/30/17 03:11 Thyroxine (T4) 7.26 ug/dl (5.5-11.0) 01/01/18 10:16 TSH 3rd Generation 3.08 mIU/ML (0.46-4.68) 01/01/18 10:16 Venous Blood Potassium 4.9 mmol/L (3.6-5.2) 12/30/17 03:04 Urine Color Yellow (YELLOW) 12/30/17 04:42 Urine Clarity Cloudy (Clear) 12/30/17 04:42 Urine pH 6.0 (5.0-8.0) 12/30/17 04:42 Ur Specific [place] 1.035 (1.003-1.030) H 12/30/17 04:42 Urine Protein Negative mg/dL (NEGATIVE) 12/30/17 04:42 Urine Glucose (UA) >=500 mg/dL (Normal) 12/30/17 04:42 Urine Ketones 20 mg/dL (NEGATIVE) 12/30/17 04:42 Urine Blood Moderate (NEGATIVE) 12/30/17 04:42 Urine Nitrate Negative (NEGATIVE) 12/30/17 04:42 Urine Bilirubin Negative (NEGATIVE) 12/30/17 04:42 Urine Urobilinogen 0.2-1.0 mg/dL (0.2-1.0) 12/30/17 04:42 Ur Leukocyte Esterase Small Brian/uL (Negative) 12/30/17 04:42 Urine RBC (Auto) 11 /hpf (0-3) H 12/30/17 04:42 Urine Microscopic WBC 23 /hpf (0-5) H 12/30/17 04:42 Ur Squamous Epith Cells 7 /hpf (0-5) H 12/30/17 04:42 Urine Bacteria Rare (<OCC) 12/30/17 04:42 Stool Occult Blood Positive (NEGATIVE) H 12/30/17 03:11 Blood Type A POSITIVE 12/30/17 02:59 Blood Type Confirm A POSITIVE 12/30/17 05:12 Antibody Screen Negative 12/30/17 02:59 Crossmatch See Detail 12/30/17 02:59 BBK History Checked No verified bt 12/30/17 02:59 - Hospital Course Hospital Course: vss no recurrence of gastroitestinal bleeding hb stable tele-regular sinus rhythm Discharge Exam - Head Exam Head Exam: ATRAUMATIC, NORMAL INSPECTION, NORMOCEPHALIC - Eye Exam Eye Exam: EOMI, Normal appearance, PERRL Pupil Exam: NORMAL ACCOMODATION, PERRL - GI/Abdominal Exam GI & Abdominal Exam: Normal Bowel Sounds - Rectal Exam Rectal Exam: NORMAL INSPECTION - Neurological Exam Neurological exam: Alert, CN II-XII Intact, Normal Gait, Oriented x3, Reflexes Normal - Psychiatric Exam Psychiatric exam: Normal Affect, Normal Mood - Skin Skin Exam: Dry, Intact, Normal Color, Warm Discharge Plan - Follow Up Plan Condition: SERIOUS Disposition: HOME/ ROUTINE Patient education suggested?: Yes Additional Instructions: discharge today follow up with private physician and hand mold maker re-anticoagulation for paroxysmal atrial fib kdur supplementation for hypokalemia Referrals: Piotr Houston MD [Primary Care Provider] -
== END 2018-01-02 10:50 | disposition home or self-care (01) | DRG 378 ==
LOC: H.ER 01:37 → H.ERHOLD 03:52 → H.ICU/CCU 08:24
PROVIDERS: ADMIT Internal Medicine Pulmonary Disease; ATTEND Internal Medicine Pulmonary Disease
PROC: 0DB68ZX Excision of Stomach, Via Natural or Artificial Opening Endoscopic, Diagnostic (ICD-10-PCS; 2017-12-31)
PROC: 0DB28ZX Excision of Middle Esophagus, Via Natural or Artificial Opening Endoscopic, Diagnostic (ICD-10-PCS; 2017-12-31)
PROC: 0DB38ZX Excision of Lower Esophagus, Via Natural or Artificial Opening Endoscopic, Diagnostic (ICD-10-PCS; 2017-12-31)
PROC: 0DB98ZX Excision of Duodenum, Via Natural or Artificial Opening Endoscopic, Diagnostic (ICD-10-PCS; principal; 2017-12-31 08:00)
DX: K26.4 Chronic or unspecified duodenal ulcer with hemorrhage (principal); D62 Acute posthemorrhagic anemia; E11.65 Type 2 diabetes mellitus with hyperglycemia; I48.0 Paroxysmal atrial fibrillation; Z68.41 Body mass index [BMI] 40.0-44.9, adult; K29.71 Gastritis, unspecified, with bleeding; K92.0 Hematemesis; E66.09 Other obesity due to excess calories; E87.6 Hypokalemia; I10 Essential (primary) hypertension; I25.10 Atherosclerotic heart disease of native coronary artery without angina pectoris; T39.395A Adverse effect of other nonsteroidal anti-inflammatory drugs [NSAID], initial encounter; Z79.01 Long term (current) use of anticoagulants; Z79.4 Long term (current) use of insulin; Z79.82 Long term (current) use of aspirin; Z86.711 Personal history of pulmonary embolism; Z87.891 Personal history of nicotine dependence; H26.9 Unspecified cataract; M54.9 Dorsalgia, unspecified; K44.9 Diaphragmatic hernia without obstruction or gangrene